=== PATIENT | male | born 1995 | race Two or more races ===

== ENCOUNTER 2024-12-19 12:50 | Emergency (ER) | payer OTHER ==
[~2024-12-19] VITALS: Ht 180.3 cm; Wt 71.7 kg
[2024-12-19 13:08] VITALS: BP 115/72; O2SAT 100
[2024-12-19] MEDS ORDERED: CEFTRIAXONE SODIUM 2,000 MG VIAL IV ONE (14:15)
[2024-12-19] MEDS ORDERED: KETOROLAC TROMETHAMINE 60 MG VIAL IM ONE ×2 (14:15→14:45)
[2024-12-19] MEDS ORDERED: CEFTRIAXONE SODIUM 2,000 MG VIAL ONE (14:45)
== END 2024-12-19 17:30 | disposition home or self-care (01) ==
LOC: ER 12:50
DX: J03.80 Acute tonsillitis due to other specified organisms (principal)